=== PATIENT | male | born 1950 | race American Indian/Alaskan Native ===

== ENCOUNTER 2018-04-14 10:42 | Emergency (ER) | payer MEDICARE, OTHER ==
[~2018-04-14 10:42] MED LIST: AMIDATE IV ONE; QUELICIN ONE; ZEMURON IV ONE
[2018-04-14] MEDS ORDERED: NARCAN 2 MG/2 ML IV ONE (10:48)
[2018-04-14] MEDS ORDERED: NARCAN 2 MG/2 ML ONE (10:48)
[2018-04-14] MEDS ORDERED: NACL 0.9% 1000 ML 2,000 ML ONE (10:49)
[2018-04-14] MEDS ORDERED: NACL 0.9% 1000 ML 1,000 ML IV ONE ×4 (10:49→13:57)
[2018-04-14] MEDS ORDERED: LEVOPHED DRIP 4 MG/NS 250 ML 4 MG/250 ML BAG IV ONE (11:25)
[2018-04-14 11:34] LABS: Basophils % (Auto) 0.3 % (0.0-1.8); Eosinophils # (Auto) 0.2 K/mm3 (0.0-0.4); Eosinophils % (Auto) 2.8 % (0.0-4.3); Hematocrit 35.8 % (35.5-45.6); Hemoglobin 11.7 gm/dl (11.8-15.2); Lymphocytes # (Auto) 3.4 K/mm3 (1.2-5.4); Lymphocytes % (Auto) 37.7 % (13.4-35.0); Mean Corpuscular HGB Conc 33 % (32-34); Mean Corpuscular Hemoglobin 29 pg (28-32); Mean Corpuscular Volume 89 fl (84-94); Monocytes # (Auto) 0.3 K/mm3 (0.0-0.8); Monocytes % (Auto) 3.6 % (0.0-7.3); Platelet Count 206 K/mm3 (140-440); Red Blood Count 4.02 M/mm3 (3.65-5.03); Red Cell Distribution Width 14.6 % (13.2-15.2)
[2018-04-14] MEDS ORDERED: D50W (25GM) Syringe IV ONE ×2 (11:42)
[2018-04-14 11:43] LABS: BUN/Creatinine Ratio 13; Blood Urea Nitrogen 12 mg/dL (9-20); Calcium 7.9 mg/dL (8.4-10.2); Hemolysis Index 19
[2018-04-14 11:45] LABS: INR 1.17 (0.87-1.13); Partial Thromboplastin Time 25.8 Sec. (24.2-36.6)
[2018-04-14] MEDS ORDERED: CORDARONE 900 MG in D5W 482 ML IV SCH (12:00)
[2018-04-14 12:20] LABS: Chol/HDL Ratio 2.52 %
--- NOTE | 2018-04-14 12:55 | Emergency Department Report ---
ED Altered Mental Status HPI - General Stated Complaint: UNRESPONSIVE Source: family Limitations: Altered Mental Status - History of Present Illness Initial Comments: Patient is 67 years old male with a history of a divorce parkinsonism. Patient brought by his by private vehicle to the ER complaining off decreased responsiveness patient immediately moved from triage to room 1. Patient is unresponsive with no pulse. CODE BLUE immediately initiated and ACLS protocol started. After 2 minutes of CPR patient started responding. Blood sugar was 144. Blood pressure 64/32. Patient immediately intubated by me, ET tube is confirmed by direct visualization and good breath sound on both sides and carpnometry. EKG showed A. fib with RVR. Since patient is unstable immediate decision to do a synchronized cardioversion was made. Patient received 50 J. Patient responded well to pressure went up to 105/52. Unfortunately patient is unable to keep his blood pressure up and he went to PEA, CPR restart it and ACLS protocol followed. Patient regained his pulse again with a heart rate of 96 and blood pressure is 96/43. Patient is started on Levophed drip. Patient also started on amiodarone drip after he was given a bolus of 150. Dr Jones from cardiology was consulted. He advised to continue amiodarone drip. Complaint: altered mental status, decreased responsiveness -: This morning Severity: severe Consistency of Symptoms: getting worse - Related Data Allergies Allergy/AdvReac Type Severity Reaction Status Date / Time Unable to Assess Allergy Unverified 04/14/18 11:41 ED Review of Systems ROS: Stated complaint: UNRESPONSIVE Other details as noted in HPI Comment: Unobtainable due to pts medical conditions ED Physical Exam - General General appearance: obtunded - Head Head exam: Present: atraumatic, normocephalic, normal inspection - Eye Eye exam: Present: normal appearance - ENT ENT exam: Present: normal exam - Neck Neck exam: Present: normal inspection. Absent: tenderness, meningismus - Respiratory Respiratory exam: Present: other (intubated, no spontaneous respiration.) - Cardiovascular Cardiovascular Exam: Present: tachycardia, irregular rhythm - GI/Abdominal GI/Abdominal exam: Present: soft. Absent: distended, tenderness, guarding, rebound - Extremities Exam Extremities exam: Present: normal inspection - Neurological Exam Neurological exam: Present: other (unresponsive) ED Course Vital Signs 04/14/18 04/14/18 12:26 13:05 Pulse Rate 100 H Blood Pressure 94/54 O2 Sat by Pulse 97 96 Oximetry - Lab Data Result diagrams: 04/14/18 11:15 04/14/18 11:15 Lab Results 04/14/18 04/14/18 04/14/18 Range/Units 11:13 11:15 11:15 WBC 8.9 (4.5-11.0) K/mm3 RBC 4.02 (3.65-5.03) M/mm3 Hgb 11.7 L (11.8-15.2) gm/dl Hct 35.8 (35.5-45.6) % MCV 89 (84-94) fl MCH 29 (28-32) pg MCHC 33 (32-34) % RDW 14.6 (13.2-15.2) % Plt Count 206 (140-440) K/mm3 Lymph % (Auto) 37.7 H (13.4-35.0) % Sullivan % (Auto) 3.6 (0.0-7.3) % Eos % (Auto) 2.8 (0.0-4.3) % Baso % (Auto) 0.3 (0.0-1.8) % Lymph # 3.4 (1.2-5.4) K/mm3 Sullivan # 0.3 (0.0-0.8) K/mm3 Eos # 0.2 (0.0-0.4) K/mm3 Baso # 0.0 (0.0-0.1) K/mm3 Seg Neutrophils % 55.6 (40.0-70.0) % Seg Neutrophils # 5.0 (1.8-7.7) K/mm3 PT (12.2-14.9) Sec. INR (0.87-1.13) APTT (24.2-36.6) Sec. D-Dimer (0-234) ng/mlDDU POC ABG pH 7.111 L (7.35-7.45) POC ABG pCO2 36.1 (35-45) POC ABG pO2 74 L (80-105) POC ABG HCO3 11.5 POC ABG Total CO2 13 POC ABG O2 Sat 89 POC ABG Base Excess -18 FiO2 80 % Sodium 140 (137-145) mmol/L Potassium 4.0 (3.6-5.0) mmol/L Chloride 105.3 (98-107) mmol/L Carbon Dioxide 13 L (22-30) mmol/L Anion Gap 26 mmol/L BUN 12 (9-20) mg/dL Creatinine 0.9 (0.8-1.5) mg/dL Estimated GFR > 60 ml/min BUN/Creatinine Ratio 13 % Glucose 232 H (75-100) mg/dL POC Glucose (70-105) Calcium 7.9 L (8.4-10.2) mg/dL Troponin T (0.00-0.029) ng/mL Triglycerides (2-149) mg/dL Cholesterol (50-199) mg/dL LDL Cholesterol Direct (50-130) mg/dL HDL Cholesterol (40-59) mg/dL Cholesterol/HDL Ratio % 04/14/18 04/14/18 04/14/18 Range/Units 11:15 11:15 11:37 WBC (4.5-11.0) K/mm3 RBC (3.65-5.03) M/mm3 Hgb (11.8-15.2) gm/dl Hct (35.5-45.6) % MCV (84-94) fl MCH (28-32) pg MCHC (32-34) % RDW (13.2-15.2) % Plt Count (140-440) K/mm3 Lymph % (Auto) (13.4-35.0) % Sullivan % (Auto) (0.0-7.3) % Eos % (Auto) (0.0-4.3) % Baso % (Auto) (0.0-1.8) % Lymph # (1.2-5.4) K/mm3 Sullivan # (0.0-0.8) K/mm3 Eos # (0.0-0.4) K/mm3 Baso # (0.0-0.1) K/mm3 Seg Neutrophils % (40.0-70.0) % Seg Neutrophils # (1.8-7.7) K/mm3 PT 15.5 H (12.2-14.9) Sec. INR 1.17 H (0.87-1.13) APTT 25.8 (24.2-36.6) Sec. D-Dimer 2500.69 H (0-234) ng/mlDDU POC ABG pH (7.35-7.45) POC ABG pCO2 (35-45) POC ABG pO2 (80-105) POC ABG HCO3 POC ABG Total CO2 POC ABG O2 Sat POC ABG Base Excess FiO2 % Sodium (137-145) mmol/L Potassium (3.6-5.0) mmol/L Chloride (98-107) mmol/L Carbon Dioxide (22-30) mmol/L Anion Gap mmol/L BUN (9-20) mg/dL Creatinine (0.8-1.5) mg/dL Estimated GFR ml/min BUN/Creatinine Ratio % Glucose (75-100) mg/dL POC Glucose 88 (70-105) Calcium (8.4-10.2) mg/dL Troponin T 0.050 H (0.00-0.029) ng/mL Triglycerides 97 (2-149) mg/dL Cholesterol 101 (50-199) mg/dL LDL Cholesterol Direct 55 (50-130) mg/dL HDL Cholesterol 40 (40-59) mg/dL Cholesterol/HDL Ratio 2.52 % - EKG Data -: EKG Interpreted by Me 04/14/18 13:20 Afib with RVR. - Medical Decision Making I discussed the patient is Dr. Portillo, his agreed to admit the patient to his service. Critical Care Time: Yes Critical care time in (mins) excluding proc time.: 65 Critical care attestation.: If time is entered above; I have spent that time in minutes in the direct care of this critically ill patient, excluding procedure time. ED Disposition Clinical Impression: Cardiopulmonary arrest, Altered mental status Disposition: DC-09 OP ADMIT IP TO THIS HOSP Is pt being admited?: Yes Condition: Stable Referrals: RIGOBERTO KING MD [Primary Care Provider] - 3-5 Days
--- NOTE | 2018-04-14 13:03 | Consultation ---
History of Present Illness Consult date: 04/14/18 Requesting physician: DAVID IGLESIAS Consult reason: atrial fibrillation History of present illness: The history was obtained from the patient's and from the emergency room staff since the patient is currently unresponsive, intubated and mechanically ventilated. According to his , the patient woke up this morning complaining of not feeling well. He subsequently complained of nausea and abdominal pain and could not eat his cereal. When his noted that he was weak and diaphoretic, she decided to bring him to the emergency department. He had to be helped out of the car and carried into ER since he was too wek to ambulate. According to the ER physician, initial rhythm was rapid atrial fibrillation associated with hypotension. He was electrocardioverted cardioverted to sinus rhythm. However, he subsequently went into cardiac arrest requiring CPR about 3 times. He was intubated and placed on mechanical ventilation during resuscitation. He is currently in sinus rhythm on Levophed and IV amiodarone drip. D-dimer was significantly elevated and troponin is mildly elevated. The patient's claims that he did not complain of chest pain or dyspnea. Past History Past Medical History: hypertension, hyperlipidemia Past Surgical History: Other (wrist surgery) Social history: . denies: smoking, alcohol abuse Family history: no significant family history Medications and Allergies Allergies Allergy/AdvReac Type Severity Reaction Status Date / Time Unable to Assess Allergy Unverified 04/14/18 11:41 Active Meds: Active Medications Amiodarone HCl 900 mg/ (Dextrose) 500 mls @ 33.33 mls/hr IV DIRECT ARMAAN; Protocol Last Admin: 04/14/18 12:09 Dose: 1 mg/min, 33.33 mls/hr Review of Systems ROS unobtainable: due to endotracheal tube, due to mental status Physical Examination Vital Signs Pulse BP Pulse Ox 100 H 94/54 97 04/14/18 12:26 04/14/18 12:26 04/14/18 12:26 General appearance: no acute distress HEENT: Positive: Normocephaly, Mucus Membranes Moist Neck: Positive: neck supple, trachea midline Cardiac: Positive: Reg Rate and Rhythm, S1/S2 Lungs: Positive: clear to auscultation Neuro: Positive: Other (unresponsive, intubated and mechanically ventilated) Abdomen: Positive: Soft, Other (diminished bowel sounds) Skin: Positive: Clear. Negative: Rash Musculoskeletal: Normal Range of Motion Extremities: Present: normal. Absent: edema Results 04/14/18 11:15 04/14/18 11:15 Coagulation 04/14/18 Range/Units 11:15 PT 15.5 H (12.2-14.9) Sec. INR 1.17 H (0.87-1.13) APTT 25.8 (24.2-36.6) Sec. Lipids 04/14/18 Range/Units 11:15 Triglycerides 97 (2-149) mg/dL Cholesterol 101 (50-199) mg/dL HDL Cholesterol 40 (40-59) mg/dL Cholesterol/HDL Ratio 2.52 % CBC 04/14/18 Range/Units 11:15 WBC 8.9 (4.5-11.0) K/mm3 RBC 4.02 (3.65-5.03) M/mm3 Hgb 11.7 L (11.8-15.2) gm/dl Hct 35.8 (35.5-45.6) % Plt Count 206 (140-440) K/mm3 Lymph # 3.4 (1.2-5.4) K/mm3 [place] # 0.3 (0.0-0.8) K/mm3 Eos # 0.2 (0.0-0.4) K/mm3 Baso # 0.0 (0.0-0.1) K/mm3 Comprehensive Metabolic Panel 04/14/18 Range/Units 11:15 Sodium 140 (137-145) mmol/L Potassium 4.0 (3.6-5.0) mmol/L Chloride 105.3 (98-107) mmol/L Carbon Dioxide 13 L (22-30) mmol/L BUN 12 (9-20) mg/dL Creatinine 0.9 (0.8-1.5) mg/dL Glucose 232 H (75-100) mg/dL Calcium 7.9 L (8.4-10.2) mg/dL - Imaging and Cardiology EKG: image reviewed - EKG Interpretation EKG shows: atrial fibrillation EKG interpretations - Telemetry EKG Rhythm: Atrial Fibrillation (with RVR) AV and intraventricular conduction: right bundle branch block Myocardial infarction: inferior IN (old age inde Assessment and Plan Maintain IV amiodarone for control of atrial fibrillation. Obtain additional set of cardiac enzymes. Obtain chest CTA and echocardiogram. Anticoagulation if brain CT is negative. - Patient Problems (1) Cardiopulmonary arrest Current Visit: Yes Status: Acute (2) Atrial fibrillation with rapid ventricular response Current Visit: Yes Status: Acute (3) New onset atrial fibrillation Current Visit: Yes Status: Acute (4) Acute respiratory failure Current Visit: Yes Status: Acute (5) Hypotension Current Visit: Yes Status: Acute (6) Elevated d-dimer Current Visit: Yes Status: Acute (7) Elevated troponin Current Visit: Yes Status: Acute
[2018-04-14] MEDS ORDERED: SODIUM BICARBONATE IV ONE (13:42)
[2018-04-14] MEDS ORDERED: CORDARONE IV ONE (13:42)
[2018-04-14] MEDS ORDERED: D50W (25GM) Vial IV ONE (13:42)
[2018-04-14] MEDS ORDERED: ADRENALIN ONE (13:42)
[2018-04-14] MEDS ORDERED: INTROPIN DRIP 800 MG/D5W 250 ML IV ONE (13:42)
[2018-04-14] MEDS ORDERED: MORPHINE ONE (13:44)
[2018-04-14] MEDS ORDERED: MORPHINE IV ONE ×2 (13:54→15:00)
--- NOTE | 2018-04-14 13:55 | History and Physical Report ---
History of Present Illness Chief complaint: Unresponsive History of present illness: 67 YO Male with HTN, HLD presents to ED for evaluation. Pt is unresponsive and unable to provide history. Pt history taken from and family who is at bedside during exam and interview. As per , the patient awoke from sleep this morning complaining of not feeling well due to nausea and abdominal pain. Pt was then transported to [facility] by his for further care and evaluation. Pt became unresponsive during transport. Pt seen and evaluated in ED and was found to have Atrial Fib with RVR complicated by hypotension. Cardiology consulted, and patient admitted to ICU. Pt subsequently developed cardiac arrest while boarding in ED- requiring CPR about 3 times. Pt was subsequently intubated and placed on mechanical ventilation and initiated on IV pressor support. Pt found to have evidence of Anoxic Brain Injury. Pt poor prognosis discussed with family. Pt family elects to make patient DNR. Pt treated with comfort care. Past History Past Medical History: hypertension, hyperlipidemia Past Surgical History: Other (wrist surgery) Social history: . denies: smoking, alcohol abuse Family history: no significant family history Medications and Allergies Allergies Allergy/AdvReac Type Severity Reaction Status Date / Time No Known Allergies Allergy Unverified 04/14/18 13:33 Active Meds: Active Medications Amiodarone HCl 900 mg/ (Dextrose) 500 mls @ 33.33 mls/hr IV DIRECT ARMAAN; Protocol Last Admin: 04/14/18 12:09 Dose: 1 mg/min, 33.33 mls/hr Review of Systems ROS unobtainable: due to mental status Exam - Constitutional Vitals: Temp Pulse Resp BP Pulse Ox 100 H 94/54 96 04/14/18 12:26 04/14/18 12:26 04/14/18 13:05 General appearance: Present: severe distress - EENT Eyes: Present: mydriasis - Neck Neck: Present: supple, normal ROM - Respiratory Respiratory effort: labored Respiratory: bilateral: diminished, rhonchi - Cardiovascular Rhythm: irregularly irregular (bradycardic, hypotensive) - Extremities Extremity abnormal: cyanosis, cold, pulses diminished Peripheral Pulses: abnormal (diminished pulses bilaterally) - Abdominal General gastrointestinal: Present: soft, non-tender, non-distended, normal bowel sounds Male genitourinary: Present: normal - Integumentary Integumentary: Present: clear, dry, clammy, pale, decreased turgor - Musculoskeletal Musculoskeletal: generalized weakness - Psychiatric Psychiatric: no intact judgment & insight, no memory intact - Neurologic Neurologic: no moves all extremities, no gait normal Results - Labs CBC & Chem 7: 04/14/18 11:15 04/14/18 11:15 Labs: Abnormal lab results 04/14/18 04/14/18 04/14/18 Range/Units 11:13 11:15 11:15 Hgb 11.7 L (11.8-15.2) gm/dl Lymph % (Auto) 37.7 H (13.4-35.0) % PT (12.2-14.9) Sec. INR (0.87-1.13) D-Dimer (0-234) ng/mlDDU POC ABG pH 7.111 L (7.35-7.45) POC ABG pCO2 (35-45) POC ABG pO2 74 L (80-105) Carbon Dioxide 13 L (22-30) mmol/L Glucose 232 H (75-100) mg/dL Calcium 7.9 L (8.4-10.2) mg/dL Troponin T (0.00-0.029) ng/mL 18 18 04/14/18 Range/Units 11:15 11:15 13:41 Hgb (11.8-15.2) gm/dl Lymph % (Auto) (13.4-35.0) % PT 15.5 H (12.2-14.9) Sec. INR 1.17 H (0.87-1.13) D-Dimer 2500.69 H (0-234) ng/mlDDU POC ABG pH 7.132 L (7.35-7.45) POC ABG pCO2 67.7 H (35-45) POC ABG pO2 429 H (80-105) Carbon Dioxide (22-30) mmol/L Glucose (75-100) mg/dL Calcium (8.4-10.2) mg/dL Troponin T 0.050 H (0.00-0.029) ng/mL Assessment and Plan - Patient Problems (1) Acute respiratory failure Current Visit: Yes Status: Acute Qualifiers: Respiratory failure complication: hypoxia Qualified Code(s): J96.01 - Acute respiratory failure with hypoxia Plan to address problem: Pt intubated, sedated, placed on vent support, Pt admitted to ICU. Poor prognosis discussed with family. Will extubate patient, and initiated comfort care measures. The high probability of a clinically significant, sudden or life threatening deterioration of the [cardiac, respiratory, renal,neuro] system(s) required my full and direct attention, intervention and personal management. The aggregate critical care time was [65] minutes. This time is in addition to time spent performing reported procedures but includes the following: [x] Data Review and interpretation [x] Patient assessment and monitoring of vital signs [x] Documentation [x] Medication orders and management (2) Encephalopathy Current Visit: Yes Status: Acute Plan to address problem: CT Head when medically stable, neuro checks, supportive care. (3) Cardiac arrest Current Visit: Yes Status: Acute Plan to address problem: Pt treated IAW ACLS protocol with return of perfusing rhythm, Pt initiated on IV pressor support. cardiology consulted. (4) New onset atrial fibrillation Current Visit: Yes Status: Acute Plan to address problem: Pt initiated on amiodarone drip, supportive care. (5) Acidosis Current Visit: Yes Status: Acute Plan to address problem: lacitc acidosis, secondary to cardiac arrest, supportive care. (6) DVT prophylaxis Current Visit: Yes Status: Acute Plan to address problem: scd to ble while in bed.
[2018-04-14 14:09] VITALS: BP 100/60
--- NOTE | 2018-04-14 14:17 | Death Note ---
Note Date of : 04/14/18 Time of : 13:52 Time Pronounced: 14:00 - Preliminary Cause of (problem) (1) Acute respiratory failure Qualifiers: Respiratory failure complication: hypoxia Qualified Code(s): J96.01 - Acute respiratory failure with hypoxia Preliminary cause of (2) Encephalopathy Preliminary cause of (3) Cardiac arrest Preliminary cause of (4) New onset atrial fibrillation Preliminary cause of (5) Acidosis Preliminary cause of (6) DVT prophylaxis Preliminary cause of
--- NOTE | 2018-04-14 14:17 | Death Summary ---
Summary - Providers Consults: 04/14/18 12:21 Consult to Physician [CONS] Stat Comment: Consulting Provider: NOLBERTO HOWARD Physician Instructions: Reason For Exam: A-fIB with RVR - summary Date of : 04/14/18 Disposition: 67 YO Male with HTN, HLD presents to ED for evaluation. Pt is unresponsive and unable to provide history. Pt history taken from and family who is at bedside during exam and interview. As per , the patient awoke from sleep this morning complaining of not feeling well due to nausea and abdominal pain. Pt was then transported to [facility] by his for further care and evaluation. Pt became unresponsive during transport. Pt seen and evaluated in ED and was found to have Atrial Fib with RVR complicated by hypotension. Cardiology consulted, and patient admitted to ICU. Pt subsequently developed cardiac arrest while boarding in ED- requiring CPR about 3 times. Pt was subsequently intubated and placed on mechanical ventilation and initiated on IV pressor support. Pt found to have evidence of Anoxic Brain Injury. Pt poor prognosis discussed with family. Pt family elects to make patient DNR. Pt treated with comfort care. Pt status worsened. Pt found to have absent heartbeat, absent breath sounds. Pt pupils were fixed and dilated and absent gag reflex. Pt time of is 1352 hrs. Pt family at bedside. - Final diagnosis (1) Acute respiratory failure Qualifiers: Respiratory failure complication: hypoxia Qualified Code(s): J96.01 - Acute respiratory failure with hypoxia Note: Final diagnosis: (2) Encephalopathy Note: Final diagnosis: (3) Cardiac arrest Note: Final diagnosis: (4) New onset atrial fibrillation Note: Final diagnosis: (5) Acidosis Note: Final diagnosis: (6) DVT prophylaxis Note: Final diagnosis:
--- NOTE | 2018-04-14 15:21 | XRay Report ---
FINAL REPORT EXAM: XR CHEST 1V AP HISTORY: chest pain; et tube placement TECHNIQUE: AP portable view of the chest PRIORS: None. FINDINGS: Lines, tubes, and devices: Endotracheal tube is in satisfactory position terminating 6 cm above the kylah. Lungs and pleura: Trachea is normal in position. Calcified 5 mm granuloma in the left base is seen. There is prominence of the pulmonary tab bilaterally. This may be projectional. When the patient is more stable, dedicated PA and lateral views of the chest are recommended. Lungs are otherwise clear of infiltrate, pleural effusion, vascular congestion, or pneumothorax. Cardiomediastinal silhouette: Cardiac and mediastinal silhouettes are otherwise unremarkable. Other: Bony structures are intact. IMPRESSION: ET tube is in satisfactory position. Prominence of the hilar regions bilaterally. This may be accentuated by the AP projection. When the patient is more stable, dedicated PA and lateral views the chest are recommended.
== END 2018-04-14 13:55 | disposition admitted as inpatient to this hospital (09) ==
LOC: EDBD 10:42 → ED 10:42
DX: I46.9 Cardiac arrest, cause unspecified (principal); G20 Parkinson's disease
CPT/HCPCS: 31500; 36415; 71045; 80048; 80061; 82803; 82962; 84484; 85025; 85379; 85610; 85730; 87040; 92950; 93005; 93010; 96361; 96365; 96366; 96375; 99291; J0171; J0282; J0330; J1265; J2270; J2310; J7030; J7060; 94002